=== PATIENT | female | born 1975 | race Caucasian/White ===

== ENCOUNTER 2017-06-14 08:50 | Emergency (ER) | payer OTHER ==
[~2017-06-14] VITALS: Ht 160 cm; Wt 55.0 kg
[2017-06-14 08:52] VITALS: BP 154/89; PULSE 87; RESP 14; TEMP 98.4; O2SAT 99
[2017-06-14] MEDS ORDERED: CEPHALEXIN MONOHYDRATE 500 MG CAP PO ONE (09:00)
[2017-06-14] MEDS ORDERED: SULFAMETHOXAZOLE-TRIMETHOPRIM DS 800-160 MG TAB PO ONE (09:00)
[2017-06-14] MEDS ORDERED: CEPH-460 PO (09:01)
[2017-06-14] MEDS ORDERED: BACT800T5 PO (09:01)
--- NOTE | 2017-06-14 09:06 | PD ---
HPI Chief Complaint: ENT Complaint Time Seen by Provider: 08:59 Travel History International Travel<30 days: No Contact w/Intl Traveler<30days: No Traveled to known affect area: No History of Present Illness HPI 41-year-old female presents for evaluation. She reports that she developed a pimple on her left cheek 2 days ago. She squeezed at it now she has developed some increased skin redness and soft tissue swelling around it. Mildly painful , aching, worse with palpation. Denies drainage, fevers or chills. No other complaints. PFSH Social History Alcohol Use: No Tobacco Use: Yes Allergies-Medications (Allergen,Severity, Reaction): Coded Allergies: No Known Allergies (Unverified , 06/14/17) Reported Meds & Prescriptions Reported Meds & Active Scripts Active Keflex (Cephalexin) 500 Mg Cap 500 Mg PO Q8H Bactrim DS (Sulfamethoxazole-Trimethoprim) 800-160 Mg Tab 1 Tab PO BID Review of Systems General / Constitutional: No: Fever Skin: Positive Other (redness, pain) Physical Exam Narrative GENERAL: Well-developed well-nourished female in no acute distress SKIN: Warm and dry. There is an excoriated papular lesion on the left cheek. There is mild surrounding cellulitis. HEAD: Atraumatic. Normocephalic. EYES: Pupils equal and round. No scleral icterus. No injection or drainage. ENT: No nasal bleeding or discharge. Mucous membranes pink and moist. NECK: Trachea midline. No JVD. CARDIOVASCULAR: Regular rate and rhythm. No murmur appreciated. RESPIRATORY: No accessory muscle use. Clear to auscultation. Breath sounds equal bilaterally. Data Data Last Documented VS Vital Signs Date Time Temp Pulse Resp B/P (MAP) Pulse Ox O2 Delivery O2 Flow Rate FiO2 06/14/17 08:52 98.4 87 14 154/89 (110) 99 Orders Orders Sulfamet-Trimeth Ds 800-160 Mg (Bactrim (06/14/17 09:00) Cephalexin (Keflex) (06/14/17 09:00) [facility] Medical Decision Making Medical Screen Exam Complete: Yes Emergency Medical Condition: Yes Medical Record Reviewed: Yes Differential Diagnosis Facial cellulitis, erysipelas, periorbital cellulitis, orbital cellulitis Narrative Course The patient has mild left-sided facial cellulitis secondary to acne. She will be discharged with Bactrim and Keflex. Diagnosis Primary Impression: Facial cellulitis Additional Instructions: Antibiotics as prescribed. Warm compresses several times a day 20 minutes at a time. Return for any new or worsening symptoms. Med/Other Pt SpecificInfo: Prescription(s) given Scripts Cephalexin (Keflex) 500 Mg Cap 500 MG PO Q8H for Infection, #30 CAP 0 Refills Prov: Araseli Laura MD 06/14/17 Sulfamethoxazole-Trimethoprim (Bactrim DS) 800-160 Mg Tab 1 TAB PO BID for Infection, #20 TAB 0 Refills Prov: Araseli Laura MD 06/14/17 Disposition: 01 DISCHARGE HOME Condition: Stable Melchor Padilla Jun 14, 2017 09:06
== END 2017-06-14 09:45 | disposition home or self-care (01) ==
LOC: NEPD 08:50
DX: L03.211 Cellulitis of face (principal)
CPT/HCPCS: 99284